=== PATIENT | female | born 1945 | race Hispanic/Latino ===

== ENCOUNTER 2017-11-12 16:56 | Inpatient (IN) | payer MEDICARE, OTHER ==
[2017-11-12 18:51] LABS: BASO # 0.07 K/mm3 (0.0-2.0); BASO % 0.7 % (0.0-3.0); EOS # 0.2 (0.0-0.7); EOS % 1.6 % (1.5-5.0); GRAN # 5.86 (1.4-6.5); GRAN % 60.7 % (50.0-68.0); HEMOGLOBIN 11.6 g/dL (12.0-16.0); LYMPH # 2.9 (1.2-3.4); LYMPH % 29.7 % (22.0-35.0); MEAN CELL VOLUME 88.4 fl (80.0-105.0); MEAN CORPUSCULAR HEMOGLOBIN 28.1 pg (25.0-35.0); MEAN CORPUSCULAR HGB CONC 31.8 g/dl (31.0-37.0); MEAN PLATELET VOLUME 9.6 fl (7.0-11.0); MONO # 0.7 (0.1-0.6); MONO % 7.3 % (1.0-6.0); RBC 4.13 10^6/uL (3.5-6.1); RED CELL DISTRIBUTION WIDTH 13.9 % (11.5-14.5); WHITE BLOOD COUNT 9.7 10^3/ul (4.5-11.0)
[2017-11-12 19:08] LABS: ALB/GLOB RATIO 1.2 (1.1-1.8); ALBUMIN 3.9 g/dL (3.0-4.8); ALT/SGPT 24 U/L (7-56); AST/SGOT 41 U/L (14-36); BLOOD UREA NITROGEN 22 mg/dL (7-21); CALCIUM 9.4 mg/dL (8.4-10.5); GFR AFRICAN-AMERICAN > 60; GFR NON-AFRICAN AMERICAN > 60
[2017-11-12] MEDS ORDERED: Vancomycin 1gm in NS 250ml 1 GM/250 ML BAG IVPB STA (20:20)
--- NOTE | 2017-11-12 20:23 | ED PDOC ---
Arrival/HPI - General Chief Complaint: Weakness/Neurological Deficit Time Seen by Provider: 11/12/17 17:45 Past Medical History - Cardiac Hx Hypertension: Yes - Musculoskeletal/Rheumatological Other/Comment: B/L lower extremity pitting edema - Psychiatric Hx Substance Use: No - Anesthesia Hx Anesthesia: No Hx Anesthesia Reactions: No Hx Malignant Hyperthermia: No Family/Social History Family/Social History: No Known Family HX Smoking Status: Never Smoked Hx Alcohol Use: No Hx Substance Use: No Allergies/Home Meds Allergies/Adverse Reactions: Allergies No Known Allergies Allergy (Verified 11/12/17 17:25) Home Medications: Home Meds Medication Instructions Recorded Confirmed Unobtainable 11/12/17 11/12/17 Physical Exam Vital Signs Temp Pulse Resp BP Pulse Ox 11/12/17 17:11 98.1 F 85 14 188/101 H 99 Finger Stick Blood Glucose: 103 Medical Decision Making - Lab Interpretations Lab Results: 11/12/17 18:25 11/12/17 18:25 Lab Results 11/12/17 18:25: Sodium 141, Potassium 4.2, Chloride 106, Carbon Dioxide 27, Anion Gap 12, BUN 22 H, Creatinine 0.7, Est GFR ( Amer) > 60, Est GFR ( Non-Af Amer) > 60, Random Glucose 120 H, Calcium 9.4, Total Bilirubin 0.3, AST 41 H, ALT 24, Alkaline Phosphatase 46, Total Protein 7.1, Albumin 3.9, Globulin 3.2, Albumin/Globulin Ratio 1.2 11/12/17 18:25: WBC 9.7, RBC 4.13, Hgb 11.6 L, Hct 36.5, MCV 88.4, MCH 28.1, MCHC 31.8, RDW 13.9, Plt Count 270, MPV 9.6, Gran % 60.7, Lymph % (Auto) 29.7, [place] % (Auto) 7.3 H, Eos % (Auto) 1.6, Baso % (Auto) 0.7, Gran # 5.86, Lymph # 2.9, [place] # 0.7 H, Eos # 0.2, Baso # 0.07 - Medication Orders Current Medication Orders: Vancomycin HCl (Vancomycin 1gm) 1 gm in 250 mls @ 167 mls/hr IVPB STAT STA PRN Reason: Protocol Stop: 11/12/17 21:49 Disposition/Present on Arrival - Present on Arrival Any Indicators Present on Arrival: No History of DVT/PE: No History of Uncontrolled Diabetes: No Urinary Catheter: No History of Decub. Ulcer: No History Surgical Site Infection Following: None - Disposition Have Diagnosis and Disposition been Completed?: Yes Diagnosis: Cellulitis, Parkinson disease Disposition: HOSPITALIZED Disposition Time: 20:25 Condition: STABLE Discharge Instructions (ExitCare): Cellulitis (ED) Referrals: German Renteria MD [Primary Care Provider] - Follow up with primary
--- NOTE | 2017-11-12 20:54 | ED PDOC ---
Arrival/HPI - General Chief Complaint: Weakness/Neurological Deficit Time Seen by Provider: 11/12/17 17:45 Historian: Patient - History of Present Illness Narrative History of Present Illness (Text): 11/12/17 20:17 A 72 year old female, whose past medical history includes Parkinson's disease ( worsening regardless of changing medication), presents to the emergency department complaining of progressive difficulty ambulating. Patient reports symptom is due to weakness and injection to bilateral lower extremities. Also, patient appears to have non-healing wound to right lower leg. Denies any trauma or any other complaints. PMD: Dr. German Renteria Past Medical History - Provider Review Nursing Documentation Reviewed: Yes - Cardiac Hx Hypertension: Yes - Musculoskeletal/Rheumatological Other/Comment: B/L lower extremity pitting edema - Psychiatric Hx Substance Use: No - Anesthesia Hx Anesthesia: No Hx Anesthesia Reactions: No Hx Malignant Hyperthermia: No Family/Social History - Physician Review Nursing Documentation Reviewed: Yes Family/Social History: No Known Family HX Smoking Status: Never Smoked Hx Alcohol Use: No Hx Substance Use: No Allergies/Home Meds Allergies/Adverse Reactions: Allergies No Known Allergies Allergy (Verified 11/12/17 17:25) Home Medications: Home Meds Medication Instructions Recorded Confirmed Unobtainable 11/12/17 11/12/17 Review of Systems - Review of Systems Constitutional: Other (progressive difficulty ambulating due to weakness and infection in lower extremities bilaterally; no trauma) Eyes: Normal ENT: Normal Respiratory: Normal Cardiovascular: Normal Gastrointestinal: Normal Genitourinary Female: Normal Musculoskeletal: Normal Skin: Other (non-healing wound to right lower leg) Neurological: Normal Endocrine: Normal Hemo/Lymphatic: Normal Psychiatric: Normal Physical Exam Vital Signs Reviewed: Yes Vital Signs Temp Pulse Resp BP Pulse Ox 11/12/17 17:11 98.1 F 85 14 188/101 H 99 Temperature: Afebrile Blood Pressure: Hypertensive Pulse: Regular Respiratory Rate: Normal Appearance: Positive for: Well-Appearing, Other (patient is currenyl bed bound and appears well-hydrated) Pain Distress: None Mental Status: Positive for: Alert and Oriented X 3 Finger Stick Blood Glucose: 103 - Systems Exam Pupils: Present: PERRL Extroacular Muscles: Present: EOMI Mouth: Present: Moist Mucous Membranes Respiratory/Chest: Present: Clear to Auscultation, Good Air Exchange. No: Respiratory Distress, Accessory Muscle Use Cardiovascular: Present: Regular Rate and Rhythm, Normal S1, S2. No: Murmurs Abdomen: Present: Normal Bowel Sounds. No: Tenderness, Distention, Peritoneal Signs Lower Extremity: Present: Erythema (right lower leg; drainage to anterior aspect of right leg), Capillary Refill < 2 s. No: NORMAL PULSES (distal pulses are faint) Neurological: Present: Other (advanced Parkinson's disease) Medical Decision Making ED Course and Treatment: 11/12/17 20:20 Impression: 72 year old female with progressive difficulty ambulating. Plan: -- Labs -- Blood Culture -- Vancomycin -- Reassess and disposition. Progress Notes: - Lab Interpretations Lab Results: 11/12/17 18:25 11/12/17 18:25 Lab Results 11/12/17 18:25: Sodium 141, Potassium 4.2, Chloride 106, Carbon Dioxide 27, Anion Gap 12, BUN 22 H, Creatinine 0.7, Est GFR ( Amer) > 60, Est GFR ( Non-Af Amer) > 60, Random Glucose 120 H, Calcium 9.4, Total Bilirubin 0.3, AST 41 H, ALT 24, Alkaline Phosphatase 46, Total Protein 7.1, Albumin 3.9, Globulin 3.2, Albumin/Globulin Ratio 1.2 11/12/17 18:25: WBC 9.7, RBC 4.13, Hgb 11.6 L, Hct 36.5, MCV 88.4, MCH 28.1, MCHC 31.8, RDW 13.9, Plt Count 270, MPV 9.6, Gran % 60.7, Lymph % (Auto) 29.7, [place] % (Auto) 7.3 H, Eos % (Auto) 1.6, Baso % (Auto) 0.7, Gran # 5.86, Lymph # 2.9, [place] # 0.7 H, Eos # 0.2, Baso # 0.07 I have reviewed the lab results: Yes - Medication Orders Current Medication Orders: Discontinued Medications Vancomycin HCl (Vancomycin 1gm) 1 gm in 250 mls @ 167 mls/hr IVPB STAT STA PRN Reason: Protocol Stop: 11/12/17 21:49 - Scribe Statement The provider has reviewed the documentation as recorded by the Diane Marie Provider Scribe Attestation: All medical record entries made by the Scribe were at my direction and personally dictated by me. I have reviewed the chart and agree that the record accurately reflects my personal performance of the history, physical exam, medical decision making, and the department course for this patient. I have also personally directed, reviewed, and agree with the discharge instructions and disposition. Disposition/Present on Arrival - Present on Arrival Any Indicators Present on Arrival: No History of DVT/PE: No History of Uncontrolled Diabetes: No Urinary Catheter: No History of Decub. Ulcer: No History Surgical Site Infection Following: None - Disposition Have Diagnosis and Disposition been Completed?: Yes Diagnosis: Cellulitis, Parkinson disease Disposition: HOSPITALIZED Disposition Time: 21:00 Patient Plan: Discharge Patient Problems: Current Active Problems Problem Status Onset Cellulitis Acute Parkinson disease Acute Condition: STABLE
--- NOTE | 2017-11-13 11:47 | MRI ---
PROCEDURE: MRI BRAIN WITHOUT CONTRAST HISTORY: ams, Parkinson dis COMPARISON: None. TECHNIQUE: Multiplanar, multisequence MR images of the brain were obtained without intravenous contrast enhancement. FINDINGS: HEMORRHAGE: None DWI: No evidence of an acute or early subacute infarction. BRAIN PARENCHYMA: No mass effect or edema. Chronic microvascular changes are seen in the periventricular white matter. VENTRICLES: Unremarkable. No hydrocephalus. CRANIUM: Unremarkable. ORBITS: Grossly unremarkable. PARANASAL SINUSES/MASTOIDS: Clear VASCULAR SYSTEM: Skull base flow voids intact. OTHER FINDINGS: None. IMPRESSION: No acute intracranial finding
[2017-11-13] MEDS: ceFAZolin 1 gm in NS 1 GM/100 ML BAG IVPB SCH ×3 (11:58→23:59)
[2017-11-13] MEDS: Silver Sulfadiazine 1% Cream (25 gm) TP SCH (15:28)
[2017-11-13] MEDS: Vancomycin 1gm in NS 250ml 1 GM/250 ML BAG IVPB SCH (21:14)
[2017-11-14] MEDS: Dextrose 5%/0.45% NS 1,000 ML IV SCH (02:10)
[2017-11-14] MEDS: ceFAZolin 1 gm in NS 1 GM/100 ML BAG IVPB SCH ×3 (06:41→22:36)
[2017-11-14 07:18] LABS: BASO # 0.05 K/mm3 (0.0-2.0); BASO % 0.5 % (0.0-3.0); EOS # 0.6 (0.0-0.7); EOS % 6.3 % (1.5-5.0); GRAN # 4.47 (1.4-6.5); GRAN % 47.2 % (50.0-68.0); HEMOGLOBIN 11.9 g/dL (12.0-16.0); LYMPH # 3.5 (1.2-3.4); LYMPH % 37.3 % (22.0-35.0); MEAN CELL VOLUME 90.5 fl (80.0-105.0); MEAN CORPUSCULAR HEMOGLOBIN 28.3 pg (25.0-35.0); MEAN CORPUSCULAR HGB CONC 31.2 g/dl (31.0-37.0); MEAN PLATELET VOLUME 9.9 fl (7.0-11.0); MONO # 0.8 (0.1-0.6); MONO % 8.7 % (1.0-6.0); RBC 4.21 10^6/uL (3.5-6.1); WHITE BLOOD COUNT 9.5 10^3/ul (4.5-11.0)
[2017-11-14 07:37] LABS: BLOOD UREA NITROGEN 11 mg/dL (7-21); CALCIUM 9.2 mg/dL (8.4-10.5); GFR AFRICAN-AMERICAN > 60; GFR NON-AFRICAN AMERICAN > 60
--- NOTE | 2017-11-14 07:46 | CON ---
DATE: 11/13/2017 The patient is in bed, in no acute distress, was seen early this afternoon in room 360, bed 2. CHIEF COMPLAINT: Weakness of several days' duration. HISTORY OF PRESENT ILLNESS: This is a 72-year-old female, who was admitted to the emergency room, was seen by Dr. Joel Goldstein yesterday in the emergency room, complaining of weakness and neurological deficits. The patient is a 72-year-old female with a history of hypertension and was seen earlier. The patient's past medical history includes hypertension, Parkinson's, progressive difficulty ambulating, weakness, bilateral lower extremity edema, erythema, and a nonhealing wound of the right leg and ulcer. The patient denies any fevers or any chills. No abdominal pain, diarrhea, or constipation. No dysuria or frequency. No headaches or blurry vision. PAST MEDICAL HISTORY: Significant for hypertension and Parkinson's disease. PAST SURGICAL HISTORY: Noncontributory. ALLERGIES: THE PATIENT HAS NO KNOWN ALLERGIES. MEDICATIONS AT HOME: Noted. PHYSICAL EXAMINATION: GENERAL: The patient is in bed. The patient's is present at the bedside. VITAL SIGNS: Temperature 98, blood pressure is 180/100, respiratory rate of 18, and heart rate of 85. HEENT: Unremarkable. NECK: Supple. LUNGS: Decreased breath sounds. HEART: Normal S1, S2. ABDOMEN: Soft and nontender. EXTREMITIES: Examination of the legs reveal bilateral lower extremity erythema; however, right leg has more significant erythema. There is also an ulcer on the right leg. LABORATORY DATA: Reveals a white count of 9.7, hemoglobin of 11, and platelets of 270. Chemistries reveal a BUN of 22, creatinine of 0.7, AST 41, and random glucose is 120. Microbiology reveals blood cultures have no growth. Review of orders reveals the patient to be on Seroquel and cefazolin, and vancomycin dose was given yesterday. ASSESSMENT AND PLAN: This is a 72-year-old female with hypertension and Parkinson's disease with a right leg cellulitis and an ulcer. We will start the patient on vancomycin and continued the cefazolin. Check on the final cultures or wound culture from the leg and follow patient's clinical response. We will follow closely with you. Josh Cagle MD [facility] # [id number]
[2017-11-14] MEDS: Vancomycin 1gm in NS 250ml 1 GM/250 ML BAG IVPB SCH ×2 (08:50→20:50)
[2017-11-14] MEDS: Silver Sulfadiazine 1% Cream (25 gm) TP SCH (09:52)
--- NOTE | 2017-11-14 10:05 | CON ---
DATE: 11/13/2017 HISTORY OF PRESENT ILLNESS: This is a 72-year-old white female with a past medical history of Parkinson's disease and right leg ulcer who came to the Emergency Room with difficulty ambulating and spoke with . The patient has been having worsening of difficulty walking since Thanksgiving and denies getting worse. The patient also has been having hallucinations and brought her here for further management. PAST MEDICAL HISTORY: Now Parkinson's. ALLERGIES: NO KNOWN DRUG ALLERGIES. HOME MEDICATIONS: Sinemet. REVIEW OF SYSTEMS: Ten-point review of systems was done. Parkinson's, rigidity, and hallucinations. PHYSICAL EXAMINATION VITAL SIGNS: Blood pressure 188/101. HEENT: Normocephalic and atraumatic. Masked face. NEUROLOGIC: Cranial nerve II through XII are tested. Pupils are reactive. EOMs are intact. Visual lazaro are full. Masked face. Mild frigidity in all the extremities noted. Deep tendon reflexes are 1+. Both plantars are downgoing. Sensory appears intact. Cerebella and gait deferred. IMPRESSION: Parkinson's disease with psychosis and hallucinations. PLAN: We will add Seroquel 25 mg one p.o. at bedtime and Physical Therapy and gait training. Brenden Bhardwaj MD
--- NOTE | 2017-11-14 12:33 | CP.PCM.PN ---
<Rocio Mccormick - Last Filed: 11/14/17 12:30> Subjective - Date & Time of Evaluation Date of Evaluation: 11/14/17 Time of Evaluation: 10:00 - Subjective Subjective: Neurology Progress Note PGY-[address] Bhardwaj Pt states that after yesterday's MRI, she became confused. Patient was noted with hallucinating, stating she was in the basement, that she was falling, that the wall clock is on the floor, meanwhile, patient remains in bed. The brother stepped out of the room, she started to scream and yell. Her symptpms was controlled by seroquel Objective - Vital Signs/Intake and Output Vital Signs (last 24 hours): Temp Pulse Resp BP Pulse Ox 97.5 F L 66 20 141/82 99 11/14/17 07:38 11/14/17 07:38 11/14/17 07:38 11/14/17 07:38 11/14/17 07:38 Intake and Output: 11/14/17 11/14/17 06:59 18:59 Intake Total 460 0 Balance 460 0 - Medications Medications: Current Medications Acetaminophen (Tylenol 325mg Tab) 650 mg PO Q4H PRN PRN Reason: Pain, Mild (1-3) Carbidopa/Levodopa (Sinemet) 1 tab PO TID [facility] Last Admin: 11/14/17 09:52 Dose: 1 tab Cefazolin Sodium (Ancef 1gm In Ns) 1 gm in 100 mls @ 100 mls/hr IVPB Q8 [facility] Last Admin: 11/14/17 06:41 Dose: 100 mls/hr Dextrose/Sodium Chloride (Dextrose 5%/0.45% Ns 1000 Ml) 1,000 mls @ 60 mls/hr IV .[id number] [facility] Last Admin: 11/14/17 02:10 Dose: Not Given Vancomycin HCl (Vancomycin 1gm) 1 gm in 250 mls @ 167 mls/hr IVPB Q12H [facility] PRN Reason: Protocol Stop: 11/22/17 20:01 Last Admin: 11/14/17 08:50 Dose: 167 mls/hr Quetiapine Fumarate (Seroquel) 25 mg PO HS [facility] PRN Reason: Protocol Last Admin: 11/13/17 21:15 Dose: 25 mg Silver Sulfadiazine (Silvadene 1% 25 Gm) 0 gm TP DAILY [facility] Last Admin: 11/14/17 09:52 Dose: 25 gm - Labs Labs: 11/14/17 06:20 11/14/17 06:20 - Constitutional Appears: No Acute Distress - Head Exam Head Exam: ATRAUMATIC, NORMAL INSPECTION, NORMOCEPHALIC - Eye Exam Eye Exam: EOMI, Normal appearance, PERRL. absent: Scleral icterus Pupil Exam: NORMAL ACCOMODATION - ENT Exam ENT Exam: Mucous Membranes Moist, Normal Exam - Neck Exam Additional comments: supple - Respiratory Exam Respiratory Exam: Clear to Ausculation Bilateral, NORMAL BREATHING PATTERN. absent: Rales, Rhonchi, Wheezes - Cardiovascular Exam Cardiovascular Exam: REGULAR RHYTHM, +S1, +S2. absent: Murmur - GI/Abdominal Exam GI & Abdominal Exam: Soft, Normal Bowel Sounds. absent: Guarding, Rigid, Tenderness - Extremities Exam Extremities Exam: Pedal Edema (R leg in dressing. L leg with stasis dermatitis) . absent: Calf Tenderness Additional comments: Callus in feet. 2nd toe contracted b/l. - Neurological Exam Neurological Exam: Alert, Awake, CN II-XII Intact, Oriented x3 Neuro motor strength exam: Left Upper Extremity: 5, Right Upper Extremity: 5, Left Lower Extremity: 5, Right Lower Extremity: 5 Additional comments: Sensory intact. - Psychiatric Exam Psychiatric exam: Normal Affect, Normal Mood - Skin Skin Exam: Dry, Warm Assessment and Plan - Assessment and Plan (Free Text) Plan: Ms Campbell, 72F, whose PMH includes Parkinson's disease x 4 years, presents to the emergency department c/o progressive difficulty ambulating due to weakness sincce thanksgiving and is worsened by infection in lower extremities. MRI w/o contrast (11/13/17) showed chronic microvascular changes in periventricular white matter. No bleed, mass effect, edema or hydrocephalus. Pt is on Vancomycin and Cefazolin for cellulitis. Neurology was consulted for Parkinson' s Disease. Parkinson's Disease with hallucination and psychosis Has ruled out stroke - MRI w/o contrast (11/13/17) showed chronic microvascular changes in periventricular white matter. No bleed, mass effect, edema or hydrocephalus. - Denied motor fluctuations (wearing-off) and dyskinesias. Tremors in L arm and L leg improved as compared a year ago. - Carbidopa/Levodopa TID - Seroquel PO 25 HS - PT/OT/ST - Recommend subacute rehab - Follow up with Dr. Bhardwaj outpatient for continual management - Neurology will sign off Cellulitis on Vanco and Ancef - Continue management by primary, ID, wound care - Pending wound culture - Blood culture negative x 1d s/r/d/w Dr Bhardwaj <BentonDon - Last Filed: 11/14/17 13:05> Objective - Vital Signs/Intake and Output Vital Signs (last 24 hours): Temp Pulse Resp BP Pulse Ox 97.5 F L 66 20 141/82 99 11/14/17 07:38 11/14/17 07:38 11/14/17 07:38 11/14/17 07:38 11/14/17 07:38 Intake and Output: 11/14/17 11/14/17 06:59 18:59 Intake Total 460 0 Balance 460 0 - Medications Medications: Current Medications Acetaminophen (Tylenol 325mg Tab) 650 mg PO Q4H PRN PRN Reason: Pain, Mild (1-3) Carbidopa/Levodopa (Sinemet) 1 tab PO TID [facility] Last Admin: 11/14/17 09:52 Dose: 1 tab Cefazolin Sodium (Ancef 1gm In Ns) 1 gm in 100 mls @ 100 mls/hr IVPB Q8 [facility] Last Admin: 11/14/17 06:41 Dose: 100 mls/hr Dextrose/Sodium Chloride (Dextrose 5%/0.45% Ns 1000 Ml) 1,000 mls @ 60 mls/hr IV .[id number] [facility] Last Admin: 11/14/17 02:10 Dose: Not Given Vancomycin HCl (Vancomycin 1gm) 1 gm in 250 mls @ 167 mls/hr IVPB Q12H [facility] PRN Reason: Protocol Stop: 11/22/17 20:01 Last Admin: 11/14/17 08:50 Dose: 167 mls/hr Quetiapine Fumarate (Seroquel) 25 mg PO HS [facility] PRN Reason: Protocol Last Admin: 11/13/17 21:15 Dose: 25 mg Silver Sulfadiazine (Silvadene 1% 25 Gm) 0 gm TP DAILY [facility] Last Admin: 11/14/17 09:52 Dose: 25 gm - Labs Labs: 11/14/17 06:20 11/14/17 06:20 Attending/Attestation - Attestation I have personally seen and examined this patient.: Yes I have fully participated in the care of the patient.: Yes I have reviewed all pertinent clinical information, including history, physical exam and plan: Yes
--- NOTE | 2017-11-14 17:00 | CARD ---
APPROVED REPORT EKG Measurement Heart [id number] <Conclusion> Normal sinus rhythm ST abnormality, possible digitalis effect Abnormal ECG
--- NOTE | 2017-11-14 18:31 | PN ---
DATE: 11/14/2017 SUBJECTIVE: The patient in bed in no acute distress, nontoxic. PHYSICAL EXAMINATION: VITAL SIGNS: Temperature is 97, blood pressure is 140/80, respiratory rate of 20, and heart rate of 66. HEENT: Unremarkable. NECK: Supple. LUNGS: Have decreased breath sounds. HEART: Normal S1 and S2. ABDOMEN: Soft. Nontender. LABORATORY EXAMINATION: Reveals a white count of 9.5, hemoglobin of 11, platelets of 252, BUN of 11, and creatinine of 0.7. Microbiology and blood cultures have no growth at 24 hours. Review of orders revealed the patient to be on cefazolin and vancomycin. The patient had an MRI of the brain, no acute intracranial bleeding and Dr. Don Bhardwaj's note is reviewed. ASSESSMENT AND PLAN: This is a 72-year-old female with hypertension and Parkinson's disease with right leg cellulitis also which greatly has improved today on vancomycin and cefazolin with negative cultures. The patient is on Seroquel, unable to use linezolid. Currently on vancomycin and cefazolin, maybe able to switch to p.o. antibiotics next 24 hours. Josh Cagle MD
[2017-11-15] MEDS: ceFAZolin 1 gm in NS 1 GM/100 ML BAG IVPB SCH ×3 (05:30→21:03)
[2017-11-15] MEDS: Vancomycin 1gm in NS 250ml 1 GM/250 ML BAG IVPB SCH ×2 (08:19→21:02)
[2017-11-15] MEDS: Silver Sulfadiazine 1% Cream (25 gm) TP SCH (10:27)
[2017-11-15] MEDS: Dextrose 5%/0.45% NS 1,000 ML IV SCH (11:13)
--- NOTE | 2017-11-15 13:25 | PN ---
DATE: 11/14/2017 SUBJECTIVE: The patient is a 72-year-old female with a history of hypertension, parkinsonism, psychosis and hallucinations who was admitted to [facility] 2 days ago with cellulitis of the right lower extremity. She is receiving vancomycin and Kefzol for the cellulitis. Today, her blood cultures have been negative x2. When seen today, the patient is awake and alert. Maybe, she had earlier 2 episodes of dizziness while lying in bed. She describes it as everything in the room is flying around and then suddenly recurrence to normal. PHYSICAL EXAMINATION: VITAL SIGNS: Her temperature is 97.5 degrees Fahrenheit, blood pressure is 141/82, heart rate is 66. LABORATORY DATA: This morning lab work shows a white blood cell count of 9.5, hemoglobin and hematocrit are 11.9 and 38.1 respectively, platelet count is 252. IMPRESSION AND PLAN: We are continuing to follow the patient closely. Continue her intravenous antibiotics Changes to be made for her Parkinson disease as needed. Michael Renteria MD [facility]
--- NOTE | 2017-11-16 01:04 | PN ---
DATE: 11/15/2017 SUBJECTIVE: The patient is in bed in no acute distress, nontoxic. PHYSICAL EXAMINATION: VITAL SIGNS: Temperature is 98, blood pressure is 130/70, respiratory rate 16. HEENT: Unremarkable. NECK: Supple. LUNGS: Have decreased breath sounds. HEART: Normal S1 and S2. ABDOMEN: Soft. Nontender. LABORATORY DATA: Reveals a white count of 9.5, hemoglobin of 11, platelets of 252, BUN of 11, and creatinine of 0.7. Microbiology reveals blood cultures are negative. Right leg culture showed gram negative milton and gram positive cocci. Dr. Michael Renteria's note is reviewed from today. ASSESSMENT AND PLAN: This is a 72-year-old female with hypertension and Parkinson's disease and a right leg cellulitis which is greatly improved, and currently, on vancomycin and cefazolin. We will check on the identification the organisms in the wound, and we will make further recommendations. Josh Cagle MD
--- NOTE | 2017-11-16 01:10 | PN ---
DATE: 11/15/2017 SUBJECTIVE: The patient was seen this Tuesday morning in room 360, bed 2 with her and brother at bedside. She is awake, alert, and in good spirits, a bit slow as is her baseline, but markedly improved since admission. There is cellulitis on the lower extremity. This has also showed marked improvement. I spoke to the patient at length regarding her hallucinations. Today, she feels that the floor is the ceiling and ceiling is the floor and there were visitors, people who are not really there, coming to talk with her. Neurology notes were appreciated. Parkinson meds continue. I will ask Dr. Da Silva to consult for Psychiatry regarding the hallucinations and continue IV antibiotics and adjust medications for Parkinsonism and hallucinations. The patient will be ready for discharge to subacute rehab facility soon. I have asked her for TCU evaluation. They are waiting for rehab and waiting for physical therapy evaluation. Physical therapist saw the patient and recommended longer course of therapy. I spoke with the patient's , Lamberto this Tuesday evening. He is in agreement for her to go to [facility] subacute rehab, so I will ask the case management and health and social care teacher to work in that direction. I would hope that she will be ready to go by after further adjustments in her neurologic and psych meds. German Renteria MD [facility]
--- NOTE | 2017-11-16 04:19 | CON ---
HISTORY OF PRESENT ILLNESS: The patient is 72-year-old female with not known previous psychiatric history. The patient has multiple medical problems including Parkinson's, also lower extremity cellulitis for what the patient was admitted on the medical side. Psych consult was called for evaluation of visual hallucinations. The patient was seen and examined today. The patient presented to be alert and oriented, pleasant, and cooperative. The patient's brother, Sim Dean, is next to the patient. The patient wants her brother to be present during the conversation. The patient's brother phone number is [phone]. As per the patient, she started to have hallucinations right after Thanksgiving. The patient reported that she had well-formed hallucinations in her house, and patient could see dogs which could be colored in different colors. It is not frightening for the patient, but the patient is aware that these hallucinations are not real. The patient reports that the patient was diagnosed with Parkinson's about the same time. The patient was started on levodopa and carbidopa back then. The patient's though processes well organized, coherent, and goal directed. The patient said yesterday she had impression that clock from the wall was coming down, and she lost her balance, and that is why she was feeling uneasy. The patient denies history of mental illness. The patient denies history of suicidal attempts. The patient denies history of being evaluated by psychiatrist or suicidal attempts. PHYSICAL EXAMINATION: VITAL SIGNS: Reviewed. Temperature 98.2, pulse is 81, blood pressure 160/81, respirations 26, O2 saturation 97. LABORATORY DATA: Reviewed. Microbiology positive for Gram positive cocci on the wound culture in the lower extremities. MEDICATIONS: Reviewed. The patient is on Tylenol, Sinemet three times a day, Ancef, Zestril, Seroquel 25 mg which is started by neurology team, cefazolin and vancomycin. MENTAL STATUS EXAMINATION: The patient presented to be alert, pleasant, and cooperative, mask-like face expression, mood described as "okay". Affect was restricted but the patient was trying to smile back to this bond underwriter. Thought process seems to be coherent and goal directed. Thought content, the patient had visual hallucinations, which are very well formed. The patient was able to describe images and animals, which she was able to see in her house. The patient denied hearing voices. Denied paranoid ideation. The patient does not present to be psychotic. Insight and judgement seems to be fair. Impulses are well controlled. IMPRESSION: Most likely, the patient has Lewy body dementia, Neurology is on board; second differential diagnosis is side effect from levodopa and carbidopa; third differential diagnosis is delirium due to lower extremity cellulitis, but most likely the patient has combination of all the above. PLAN: Continue current management, agree with the Seroquel at the night time 25 mg . Risks, benefits, and alternatives are discussed with the patient and the patient's brother. The patient is not in acute distress. We will continue antibiotics, physical therapy evaluation, gait training, and the bond underwriter will follow up on this patient and advise accordingly. Should you have any questions, give me a call back. Thank you very much for letting me participate in care of your patient. Rekha Madden MD MTDPatricia
[2017-11-16] MEDS: ceFAZolin 1 gm in NS 1 GM/100 ML BAG IVPB SCH (06:06)
[2017-11-16 06:45] LABS: HEMOGLOBIN 11.5 g/dL (12.0-16.0); MEAN CELL VOLUME 88.9 fl (80.0-105.0); MEAN CORPUSCULAR HEMOGLOBIN 27.8 pg (25.0-35.0); MEAN CORPUSCULAR HGB CONC 31.3 g/dl (31.0-37.0); MEAN PLATELET VOLUME 10.1 fl (7.0-11.0); RBC 4.14 10^6/uL (3.5-6.1); RED CELL DISTRIBUTION WIDTH 13.5 % (11.5-14.5); WHITE BLOOD COUNT 10.1 10^3/ul (4.5-11.0)
[2017-11-16 07:18] LABS: ALB/GLOB RATIO 1.1 (1.1-1.8); ALBUMIN 3.2 g/dL (3.0-4.8); ALT/SGPT 20 U/L (7-56); AST/SGOT 30 U/L (14-36); BLOOD UREA NITROGEN 12 mg/dL (7-21); CALCIUM 8.9 mg/dL (8.4-10.5); GFR AFRICAN-AMERICAN > 60; GFR NON-AFRICAN AMERICAN > 60
[2017-11-16] MEDS: Vancomycin 1gm in NS 250ml 1 GM/250 ML BAG IVPB SCH (09:04)
[2017-11-16] MEDS: Silver Sulfadiazine 1% Cream (25 gm) TP SCH (09:04)
[2017-11-16] MEDS: Dextrose 5%/0.45% NS 1,000 ML IV SCH (09:05)
[2017-11-16 09:09] VITALS: BP 168/80; PULSE 74; RESP 20; TEMP 98.8; O2SAT 97
--- NOTE | 2017-11-16 14:22 | PN ---
DATE: SUBJECTIVE: The patient is a 72-year-old female, most likely the patient has Lewy body dementia, Parkinson, as well as very well formed visual hallucinations. The patient was initially seen by this credit underwriter yesterday. This credit underwriter is following up on this patient today. The patient presented to be alert, seems remember this credit underwriter, but does not remember her name. The patient said overnight time she has had episode when she had feeling that room is changing position. The patient made statement "the ceiling went on the floor and floor went to the ceiling and clock changed its position." The patient also said that she had impression that she went down to the basement of the hospital and she was looking for help there. The patient was able to describe how she felt and the patient said that she was feeling frightened. The patient denied that she was sleeping during that time and the patient said that it sounded real, but she knows that it was not physically possible. At the same time, the patient denied that it was nightmare. Thought process seems to be circumstantial, as well as, over inclusive, but there is no thought process disorganization. The patient does not want this credit underwriter to increase the dose of Seroquel as of now. The patient said that she would consider that tomorrow if the symptoms will come back. MEDICATIONS: Tylenol, Sinemet, Aricept, dextrose, Seroquel 25 mg at the nighttime, Silvadene, and vancomycin. PHYSICAL EXAMINATION: VITAL SIGNS: Seems to be stable. Temperature 98.8, pulse 74, blood pressure 168/80, respirations 26, and saturations 97%. MENTAL STATUS EXAMINATION: As this credit underwriter described above the patient presented to be alert, oriented in self, place, and time. Intermittent eye contact. Speech was overproductive, but not pressured, low volume, monotonic. Mood described as "I was not feeling that well." Affect was constricted. The patient has masked face expression, but she was trying to smile. Thought process, circumstantial and overinclusive. Thought content, the patient reported to have visual hallucinations. Denied hearing voices. Denies seeing things. Denied paranoid ideations. Insight and judgment seems to be improving. Impulses are well controlled. IMPRESSION: Most likely, the patient has Lewy body dementia, on top of that delirium, which could be related to lower extremity cellulitis, as well as, side effects from carbidopa and levodopa cannot be excluded, but most likely it is combination of the all factors. PLAN: Continue current management. Continue current medications. The patient does not want this credit underwriter to increase the dose of Seroquel. Physical therapy recommended to train the patient gait and work on the balance. Case was discussed with Dr. Renteria. Should you have any questions give me a call back. We will follow up and advice accordingly. Thank you very much for letting me participate in care of your patient. Rekha Madden MD
--- NOTE | 2017-11-16 21:13 | PN ---
DATE: 11/16/2017 SUBJECTIVE: The patient seen earlier this morning in room 360. No fever or no chills. Tolerating the medications well. PHYSICAL EXAMINATION: VITAL SIGNS: Temperature is 98, blood pressure is 160/80, respiratory rate of 20. HEENT: Unremarkable. NECK: Supple. LUNGS: Have decreased breath sounds. HEART: Normal S1 and S2. ABDOMEN: Soft. Nontender. LABORATORY EXAMINATION: Reveals a white count of 10,000, hemoglobin of 11, platelets of 251. BUN of 12 and creatinine of 0.7. ASSESSMENT AND PLAN: This is a 72-year-old with hypertension and Parkinson's disease, right leg cellulitis, great improvement. Switched to p.o. Augmentin 875 p.o. b.i.d. We will follow closely with you as outpatient. Josh Cagle MD
[2017-11-16] MEDS ORDERED: Amoxicillin-Clav 875-125 mg Tab PO SCH (22:00)
== END 2017-11-16 15:33 | DRG 593 ==
LOC: ED 16:56 → ERH 20:06 → 3RNO 22:17
PROVIDERS: ADMIT Internal Medicine; ATTEND Internal Medicine
DX: L97.919 Non-pressure chronic ulcer of unspecified part of right lower leg with unspecified severity (principal); L03.115 Cellulitis of right lower limb; F02.80 Dementia in other diseases classified elsewhere, unspecified severity, without behavioral disturbance, psychotic disturbance, mood disturbance, and anxiety; G31.83 Neurocognitive disorder with Lewy bodies; I10 Essential (primary) hypertension; F29 Unspecified psychosis not due to a substance or known physiological condition; R26.2 Difficulty in walking, not elsewhere classified; B95.2 Enterococcus as the cause of diseases classified elsewhere